=== PATIENT | male | born 2000 | race Caucasian/White ===

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

== ENCOUNTER → 2020-08-26 | Outpatient (CLI) | payer OTHER | END | disposition home or self-care (01) | LOC: LABWHC1 16:46 | PROVIDERS: ATTEND Family Medicine | DX: Z20.822 Contact with and (suspected) exposure to COVID-19 (principal) | CPT/HCPCS: U0003; C9803; U0005 ==

== ENCOUNTER → 2021-04-21 | Outpatient (CLI) | payer OTHER ==
--- NOTE | 2021-04-21 21:33 | CONS ---
CONSULTATION REASON FOR CONSULTATION: Sleep apnea. HISTORY OF PRESENT ILLNESS: A 20-year-old male patient currently lives in [place] was referred to me for sleep apnea evaluation. The patient is working as a cook in a local restaurant/bar. He is concerned about sleep apnea. He was obese and he has lost around 60 to 80 pounds over the past 3 months. He was having excessive tiredness and sleepiness. Now he has lost some weight, he is already feeling better. He still snores. He has nocturia where he wakes up somewhere between once or twice in the middle of night to urinate. He has occasional grinding of the teeth. He goes to bed between 10 o'clock and midnight and wakes up around 6 to 8 am in the morning. On the days when he is off work, he goes to bed between as late as 1:00 am and wakes up between 8 to 10 am in the morning. He smokes. No history of substance abuse. He tries to sleep on his side. He does not take any naps during the day. He does not fall asleep while driving. Never been involved in a motor vehicle accident because of feeling drowsy or sleepy. No symptoms of RLS. No sleep paralysis. No hallucinations or cataplexy. PAST MEDICAL HISTORY: Bronchial asthma and history of ADHD. SURGICAL HISTORY: Includes bilateral inguinal double hernia repair. DRUG ALLERGIES: NOT KNOWN. OUTPATIENT MEDICATIONS: Ventolin on an as-needed basis. SOCIAL HISTORY: The patient is a smoker. No history of alcohol. No history of IV drugs. FAMILY HISTORY: His father has obstructive sleep apnea. The father is using his CPAP machine. REVIEW OF SYSTEM: 14 point review of systems was done. Obviously the patient has features of obstructive sleep apnea yet he has lost around 60-80 pounds as the patient is regulating his diet and he is feels that he can even lose more. As his weight loss is in progress, he is already feeling better. PHYSICAL EXAMINATION: VITAL SIGNS: BP is 149/72, pulse 87, respirations 16, temperature 97.6, saturation 98% on room air. Height is 6 feet 1 inch, weight 301, BMI 39.7. Bridgewater score is 11. Neck size 17-3/4 of an inch. General appearance: Calm, comfortable. Head is atraumatic, normocephalic. NECK: Supple. Mallampati class 4. No goiter or neck mass. LUNGS: Clear to auscultation. HEART: Heart sounds are regular rate and rhythm. Normal S1, S2. No S3. No murmurs. ABDOMEN: Soft, nontender. No organomegaly. EXTREMITIES: No edema, no cyanosis or clubbing. IMPRESSION: 1. Hypersomnia currently under investigation, consider underlying obstructive sleep apnea. Bridgewater score is at 11. 2. Obesity with a BMI of 39.7. Nevertheless, the patient has lost somewhere between 60 to 80 pounds over the past 3 months and his hypersomnia symptoms and sleep fragmentation has improved sense. 3. Loud snoring. 4. Intermittent bronchial asthma. 5. Attention-deficit/hyperactivity disorder. PLAN: Ideally, the patient would benefit from a screening polysomnogram and treatment for obstructive sleep apnea. Nevertheless, he has loss a considerable amount of weight and he seems to be committed to lose more weight. Based on all this, I think it is reasonable to wait on any diagnostic evaluation at this point in time. I would say it is reasonable to wait another 3 months until the patient's weight is plateaued and it is down as much as possible. Once he establishes a steady state in his body weight, a screening polysomnogram will be ordered if the patient continues to have symptoms of hypersomnia and sleepiness. Based on that, I asked the patient to contact me back in 3 months' time once his weight is more stable and has reached its lower level. If symptoms still symptomatic, further investigation will be done accordingly. JOHNY / NATALIA: [id number] /
== END ==
LOC: SLEEP 15:09
PROVIDERS: ATTEND Internal Medicine Critical Care Medicine
DX: G47.10 Hypersomnia, unspecified (principal); E66.9 Obesity, unspecified; J45.20 Mild intermittent asthma, uncomplicated; F90.9 Attention-deficit hyperactivity disorder, unspecified type; F17.200 Nicotine dependence, unspecified, uncomplicated; Z68.39 Body mass index [BMI] 39.0-39.9, adult
CPT/HCPCS: 99211